=== PATIENT | female | born 1975 | race Caucasian/White ===

== ENCOUNTER 2018-12-31 12:10 | Emergency (ER) | payer OTHER ==
[2018-12-31 12:31] VITALS: BP 120/98; PULSE 105; O2SAT 98
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
[2018-12-31] MEDS ORDERED: Klonopin 0.5 MG PO ONE (12:55)
== END 2018-12-31 13:29 | disposition home or self-care (01) ==
LOC: ED 12:10
DX: Z76.0 Encounter for issue of repeat prescription (principal); Z02.89 Encounter for other administrative examinations
CPT/HCPCS: 99283; A9270-GY

== ENCOUNTER 2019-03-08 08:54 | Emergency (ER) | payer OTHER ==
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
[2019-03-08] MEDS ORDERED: Klonopin 0.5 MG PO ONE (09:43)
[2019-03-08 10:14] VITALS: O2SAT 98
[2019-03-08] MEDS ORDERED: HYDROCODONE-ACETAMIN 2.5-108/5 ML SOLUTION PO STA (10:29)
--- NOTE | 2019-03-08 10:29 | XRAY ---
Exam: AP upright portable chest film from 03/08/2019. Comparison: None. Indication: Cough, right lower lung pain. Findings: The radiograph was obtained in a lordotic projection. The transverse heart size appears within normal limits. Inflation of the lungs appears average. EKG leads are noted in place. The haroon and mediastinal structures appear unremarkable. There is equivocal evidence of some minimal plate atelectasis at the medial right lung base. Otherwise, the lung souza appear clear. No pulmonary vascular congestion, pneumothorax, or pleural fluid is seen. Surgical clips consistent with prior cholecystectomy are seen within the right upper quadrant. No acute osseous process is seen. Impression: 1. Equivocal evidence of a minimal plate atelectasis at the medial right lung base. Otherwise, no acute cardiopulmonary process is seen.
[2019-03-08] MEDS ORDERED: Rocephin 1000 MG INJ IM ONE (10:30)
[2019-03-08] MEDS ORDERED: DELTASONE 20 MG ONE (10:34)
[2019-03-08] MEDS ORDERED: Rocephin 1000 MG INJ ONE (10:34)
[2019-03-08] MEDS ORDERED: HYDROCODONE-ACETAMIN 2.5-108/5 ML SOLUTION ONE (10:34)
[2019-03-08 10:52] VITALS: BP 136/90; PULSE 88
[2019-03-09] MEDS ORDERED: DELTASONE 20 MG PO ONE (10:30)
== END 2019-03-08 10:52 | disposition home or self-care (01) ==
LOC: ED 08:54
DX: H00.015 Hordeolum externum left lower eyelid (principal); J40 Bronchitis, not specified as acute or chronic; Z79.899 Other long term (current) drug therapy; Z76.0 Encounter for issue of repeat prescription
CPT/HCPCS: 71045; 96372; 99284; J0696; A9270-GY